=== PATIENT | female | born 1985 | race Caucasian/White ===

== ENCOUNTER 2020-07-19 16:13 | Emergency (ER) | payer OTHER ==
[~2020-07-19] VITALS: Ht 149.9 cm; Wt 77.3 kg
[2020-07-19 16:43] VITALS: BP 151/92
== END 2020-07-19 17:36 | disposition home or self-care (01) ==
LOC: ER 16:14
DX: S99.922A Unspecified injury of left foot, initial encounter (principal); M79.672 Pain in left foot; Z88.6 Allergy status to analgesic agent; Z88.8 Allergy status to other drugs, medicaments and biological substances; X58.XXXA Exposure to other specified factors, initial encounter; Y93.89 Activity, other specified; Y92.89 Other specified places as the place of occurrence of the external cause; Y99.8 Other external cause status
CPT/HCPCS: 73630; 99283